=== PATIENT | male | born 1970 | race African-American/Black ===

== ENCOUNTER 2017-03-30 20:00 | Outpatient (CLI) | payer OTHER | END 2017-03-30 20:01 | disposition home or self-care (01) | LOC: SLEEPLAB 20:00 | PROVIDERS: ATTEND Family Medicine | DX: G47.33 Obstructive sleep apnea (adult) (pediatric) (principal); E66.01 Morbid (severe) obesity due to excess calories; F41.9 Anxiety disorder, unspecified; I10 Essential (primary) hypertension; R06.83 Snoring; G47.00 Insomnia, unspecified | CPT/HCPCS: 95806 ==